=== PATIENT | female | born 1950 | race Caucasian/White ===

== ENCOUNTER 2017-02-06 16:15 | Emergency (ER) | payer OTHER ==
--- NOTE | 2017-02-06 17:01 | DIAGNOSTIC IMAGING REPORT ---
PROCEDURE: XR FOOT 3 VIEWS - RIGHT INDICATION: TRAUMA/INJURY TECHNIQUE: Three views. COMPARISON: None. FINDINGS: Osseous structures and joint spaces are normal. IMPRESSION: 1. Normal right foot.
--- NOTE | 2017-02-06 17:07 | ED NURSING NOTES ---
Clinical Report - Nurses [facility] [address] [place] [address] 02/06/2017 16:16 [id number] Triage time 16:Feb 06 2017. Acuity: LEVEL 4. Chief Complaint: RIGHT LOWER EXTREMITY PAIN and SWELLING. Alert. No acute distress. LAURITA COMA SCORE: Laurita Coma Scale: 15- eyes open spontaneously (4); best verbal response- oriented x 4 (5); best motor response- obeys commands (6). --16:29 Vickie Burrell R.N. 16:25 02/06/17. BP: 156/85. HR: 79. RR: 18. O2 saturation: 100%. Temp: 98.0 F. Pain level now 7/10. --16:29 Vickie Burrell R.N. Weight: 81.6 kg stated. Height/Length: 65 inches Per Patient. BMI: 30. --16:25 Vickie Burrell R.N. Medications None. --16:25 Vickie Burrell R.N. Medication/allergy information source: the patient. --16:29 Vickie Burrell R.N. Allergies Augmentin.(diarrhea) Betadine. (bisters) Daypro.(diarrhea) --16:25 Vickie Burrell R.N. History Arrived by private vehicle. Historian: patient. Accompanied by family. Primary physician ([facility]). ( Right Foot Injury while fixing a table at school, table fell onto the foot.). Injury occurred. This occurred just prior to arrival. Occurred at work. 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 PAST MEDICAL HX: Tetanus status: up-to-date. Has not received seasonal influenza immunization. SOCIAL HX: Never smoker. No alcohol use or drug use. No infectious disease exposure. FALL RISK ASSESSMENT: Fall risk assessment completed. No fall risk identified. NUTRITIONAL RISK ASSESSMENT: The nutritional risk assessment revealed no deficiencies. FUNCTIONAL ASSESSMENT: Functional assessment: no impairments noted. LEARNING NEEDS ASSESSMENT: The learning needs assessment revealed no barriers. SKIN INTEGRITY ASSESSMENT: Skin integrity risk assessment completed. No skin integrity risk identified. --16:29 Vickie Burrell R.N. PROBLEMS: Cystitis. UTI - Urinary Tract Infection. Immunizations. LNMP - Last Normal Menstrual Period. --16:26 Vickie Burrell R.N. ADDITIONAL SURGERIES: Knee Surgery. --16:26 Vickie Burrell R.N. Interventions ID band on patient. To room. --16:29 Vickie Burrell R.N. PHYSICAL ASSESSMENT Ambulatory to room. GENERAL / NEURO / PSYCH: Oriented X 4. Appears in no acute distress. EXTREMITIES: Extremity pulses are within normal limits. Extremities exhibit normal ROM. Neuro-vascular status intact to the extremity. Normal gait. Right foot: tenderness. SKIN: Skin is warm and dry. --17:12 Vickie Burrell R.N. NURSING PROGRESS NOTES Patient ready for evaluation- ED physician and PA notified. --16:29 Vickie Burrell R.N. Cold pack applied (at triage). ( seen and evaluated by the PA.). --17:13 Vickie Burrell R.N. ( discharged by ANTON Ireland). --17:13 Vickie Burrell R.N. DISPOSITION / DISCHARGE Condition at departure: unchanged and stable. No learning barriers present. Discharge instructions provided and reviewed with the patient. Patient verbalized understanding. Written instructions provided in Bahamian. The patient was discharged by the physician professional nursing assistant. She was discharged home and accompanied by family. She left the Emergency Department ambulatory and via private vehicle. Family member driving. FALL RISK ASSESSMENT: Fall risk assessment completed. No fall risk identified. --17:13 Vickie Burrell R.N. Departure time: 17:Feb 06 2017. --17:21 Vickie Burrell R.N. Locked/Released at 02/06/2017 18:13 by Vickie Burrell R.N.
--- NOTE | 2017-02-06 17:07 | ED CLINICAL REPORT ---
Clinical Report - Physicians/Mid Levels [facility] [address] [place] [address] 02/06/2017 16:16 Patient: BARBARA WAYNE Time Seen: 16:43 Feb 06 2017. Arrived- By private vehicle. Historian- patient. HISTORY OF PRESENT ILLNESS Chief Complaint: Injury to the right foot. The injury happened just prior to arrival. Occurred at home. The patient sustained a direct blow. Patient is experiencing mild pain. Patient denies injury to the head or neck. (prior to arrival patient sustained a blow from a table well anxious just prior to arrival. Pain with ambulating. Patient took Motrin prior to arrival. Reports previous injury to the middle toe with a fracture she believes, nonsurgical. Denies any laceration or rash.). REVIEW OF SYSTEMS The patient complains of pain on weight bearing. All systems otherwise negative, except as recorded above. PAST HISTORY Problems: Cystitis. UTI - Urinary Tract Infection. Immunizations. LNMP - Last Normal Menstrual Period. Additional Surgeries: Knee Surgery. Medications: None. Allergies: Augmentin.(diarrhea) Betadine. (bisters) Daypro.(diarrhea). SOCIAL HISTORY Never smoker. No alcohol use or drug use. ADDITIONAL NOTES The nursing notes have been reviewed. PHYSICAL EXAM Vital Signs: 02/06/2017 16:25 BP: 156/85. HR: 79. RR: 18. O2 saturation: 100%. Temp: 98.0 F. Appearance: Alert. No acute distress. Head: Head atraumatic. Neck: Normal inspection. Neck supple. CVS: Normal heart rate and rhythm. Heart sounds normal. Respiratory: No respiratory distress. Breath sounds normal. No decreased air movement or accessory muscle use. Skin: Skin intact. Skin warm. Extremities: Right lateral ankle. Base of the right 5th metatarsal. Right dorsal foot: tenderness, swelling and small ecchymosis. No erythema, laceration, abrasion, foreign body or deformity. Right heel. No tenderness or swelling. No ankle injury. Neuro, Vascular and Tendons: Sensation intact. Motor intact. Neuro: Oriented X 3. LABS, X-RAYS, AND EKG Rt Foot X-ray: (IMPRESSION: 1. Normal right foot. Electronically Final signed by:Dimitry De La Rosa MD 02/06/2017 5:01:58 PM). PROGRESS AND PROCEDURES Course of Care: the patient here there is very stable. No signs of laceration or ecchymosis. Patient with no signs of fracture on x-ray. Able to ambulate. Good distal sensation. No signs of open wound. Stable. 02/06/2017 16:25 BP: 156/85. HR: 79. RR: 18. O2 saturation: 100%. Temp: 98.0 F. Patient is stable. Symptoms better. Patient/family counseled. Disposition: Discharged. CLINICAL IMPRESSION Single contusion to the right foot. INSTRUCTIONS Apply ice. OTC Medications: Motrin IB 200 mg (available over the counter): take 4 orally every 8 hours Follow-up: Follow up with your doctor in four days. (Electronically signed by Phyllis Bonilla P.A.-C 02/06/2017 18:02)
--- NOTE | 2017-02-06 17:07 | ED ORDER SUMMARY ---
..... Patient: BARBARA WAYNE OrderSheet [facility] VisitID: [id number] [address] [place] [address] 66y, F Registration Date/Time: 02/06/2017 ORDER SHEET Weight: 81.6 kg (stated) Allergies: Augmentin, Betadine, Daypro GENERAL ORDERS: Foot 3V Right Urgent (16:34 02/06/2017 Carleen Saldivar) (16:44 [facility]) MEDICATION ORDERS: IV FLUIDS: ORDER SHEET NOTES: [Electronically signed by Phyllis Bonilla P.A.-C (18:01 02/06/2017)] [Electronically signed by Vickie Burrell R.N. (18:13 02/06/2017)] [Electronically locked/signed by Vickie Burrell R.N. (18:13 02/06/2017)]
--- NOTE | 2017-02-06 17:07 | ED CLINICAL REPORT ---
Clinical Report - Physicians/Mid Levels [facility] [address] [place] [address] 02/06/2017 16:16 Patient: BARBARA WAYNE Time Seen: 16:43 Feb 06 2017. Arrived- By private vehicle. Historian- patient. HISTORY OF PRESENT ILLNESS Chief Complaint: Injury to the right foot. The injury happened just prior to arrival. Occurred at home. The patient sustained a direct blow. Patient is experiencing mild pain. Patient denies injury to the head or neck. (prior to arrival patient sustained a blow from a table well anxious just prior to arrival. Pain with ambulating. Patient took Motrin prior to arrival. Reports previous injury to the middle toe with a fracture she believes, nonsurgical. Denies any laceration or rash.). REVIEW OF SYSTEMS The patient complains of pain on weight bearing. All systems otherwise negative, except as recorded above. PAST HISTORY Problems: Cystitis. UTI - Urinary Tract Infection. Immunizations. LNMP - Last Normal Menstrual Period. Additional Surgeries: Knee Surgery. Medications: None. Allergies: Augmentin.(diarrhea) Betadine. (bisters) Daypro.(diarrhea). SOCIAL HISTORY Never smoker. No alcohol use or drug use. ADDITIONAL NOTES The nursing notes have been reviewed. PHYSICAL EXAM Vital Signs: 02/06/2017 16:25 BP: 156/85. HR: 79. RR: 18. O2 saturation: 100%. Temp: 98.0 F. Appearance: Alert. No acute distress. Head: Head atraumatic. Neck: Normal inspection. Neck supple. CVS: Normal heart rate and rhythm. Heart sounds normal. Respiratory: No respiratory distress. Breath sounds normal. No decreased air movement or accessory muscle use. Skin: Skin intact. Skin warm. Extremities: Right lateral ankle. Base of the right 5th metatarsal. Right dorsal foot: tenderness, swelling and small ecchymosis. No erythema, laceration, abrasion, foreign body or deformity. Right heel. No tenderness or swelling. No ankle injury. Neuro, Vascular and Tendons: Sensation intact. Motor intact. Neuro: Oriented X 3. LABS, X-RAYS, AND EKG Rt Foot X-ray: (IMPRESSION: 1. Normal right foot. Electronically Final signed by:Dimitry De La Rosa MD 02/06/2017 5:01:58 PM). PROGRESS AND PROCEDURES Course of Care: the patient here there is very stable. No signs of laceration or ecchymosis. Patient with no signs of fracture on x-ray. Able to ambulate. Good distal sensation. No signs of open wound. Stable. 02/06/2017 16:25 BP: 156/85. HR: 79. RR: 18. O2 saturation: 100%. Temp: 98.0 F. Patient is stable. Symptoms better. Patient/family counseled. Disposition: Discharged. CLINICAL IMPRESSION Single contusion to the right foot. INSTRUCTIONS Apply ice. OTC Medications: Motrin IB 200 mg (available over the counter): take 4 orally every 8 hours Follow-up: Follow up with your doctor in four days. (Electronically signed by Phyllis Bonilla P.A.-C 02/06/2017 18:02)
--- NOTE | 2017-02-06 17:07 | ED ORDER SUMMARY ---
..... Patient: BARBARA WAYNE OrderSheet [facility] VisitID: [id number] [address] [place] [address] 66y, F Registration Date/Time: 02/06/2017 ORDER SHEET Weight: 81.6 kg (stated) Allergies: Augmentin, Betadine, Daypro GENERAL ORDERS: Foot 3V Right Urgent (16:34 02/06/2017 Carleen Saldivar) (16:44 [facility]) MEDICATION ORDERS: IV FLUIDS: ORDER SHEET NOTES: [Electronically signed by Phyllis Bonilla P.A.-C (18:01 02/06/2017)] [Electronically signed by Vickie Burrell R.N. (18:13 02/06/2017)] [Electronically locked/signed by Vickie Burrell R.N. (18:13 02/06/2017)]
--- NOTE | 2017-02-06 17:07 | ED NURSING NOTES ---
Clinical Report - Nurses [facility] [address] [place] [address] 02/06/2017 16:16 [id number] Triage time 16:Feb 06 2017. Acuity: LEVEL 4. Chief Complaint: RIGHT LOWER EXTREMITY PAIN and SWELLING. Alert. No acute distress. LAURITA COMA SCORE: Laurita Coma Scale: 15- eyes open spontaneously (4); best verbal response- oriented x 4 (5); best motor response- obeys commands (6). --16:29 Vickie Burrell R.N. 16:25 02/06/17. BP: 156/85. HR: 79. RR: 18. O2 saturation: 100%. Temp: 98.0 F. Pain level now 7/10. --16:29 Vickie Burrell R.N. Weight: 81.6 kg stated. Height/Length: 65 inches Per Patient. BMI: 30. --16:25 Vickie Burrell R.N. Medications None. --16:25 Vickie Burrell R.N. Medication/allergy information source: the patient. --16:29 Vickie Burrell R.N. Allergies Augmentin.(diarrhea) Betadine. (bisters) Daypro.(diarrhea) --16:25 Vickie Burrell R.N. History Arrived by private vehicle. Historian: patient. Accompanied by family. Primary physician ([facility]). ( Right Foot Injury while fixing a table at school, table fell onto the foot.). Injury occurred. This occurred just prior to arrival. Occurred at work. 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 PAST MEDICAL HX: Tetanus status: up-to-date. Has not received seasonal influenza immunization. SOCIAL HX: Never smoker. No alcohol use or drug use. No infectious disease exposure. FALL RISK ASSESSMENT: Fall risk assessment completed. No fall risk identified. NUTRITIONAL RISK ASSESSMENT: The nutritional risk assessment revealed no deficiencies. FUNCTIONAL ASSESSMENT: Functional assessment: no impairments noted. LEARNING NEEDS ASSESSMENT: The learning needs assessment revealed no barriers. SKIN INTEGRITY ASSESSMENT: Skin integrity risk assessment completed. No skin integrity risk identified. --16:29 Vickie Burrell R.N. PROBLEMS: Cystitis. UTI - Urinary Tract Infection. Immunizations. LNMP - Last Normal Menstrual Period. --16:26 Vickie Burrell R.N. ADDITIONAL SURGERIES: Knee Surgery. --16:26 Vickie Burrell R.N. Interventions ID band on patient. To room. --16:29 Vickie Burrell R.N. PHYSICAL ASSESSMENT Ambulatory to room. GENERAL / NEURO / PSYCH: Oriented X 4. Appears in no acute distress. EXTREMITIES: Extremity pulses are within normal limits. Extremities exhibit normal ROM. Neuro-vascular status intact to the extremity. Normal gait. Right foot: tenderness. SKIN: Skin is warm and dry. --17:12 Vickie Burrell R.N. NURSING PROGRESS NOTES Patient ready for evaluation- ED physician and PA notified. --16:29 Vickie Burrell R.N. Cold pack applied (at triage). ( seen and evaluated by the PA.). --17:13 Vickie Burrell R.N. ( discharged by ANTON Ireland). --17:13 Vickie Burrell R.N. DISPOSITION / DISCHARGE Condition at departure: unchanged and stable. No learning barriers present. Discharge instructions provided and reviewed with the patient. Patient verbalized understanding. Written instructions provided in Guamanian. The patient was discharged by the physician event marketing assistant. She was discharged home and accompanied by family. She left the Emergency Department ambulatory and via private vehicle. Family member driving. FALL RISK ASSESSMENT: Fall risk assessment completed. No fall risk identified. --17:13 Vickie Burrell R.N. Departure time: 17:Feb 06 2017. --17:21 Vickie Burrell R.N. Locked/Released at 02/06/2017 18:13 by Vickie Burrell R.N.
--- NOTE | 2017-02-06 18:13 | ED MED RECONCILIATION SUMMARY ---
Patient: BARBARA WAYNE Medication Reconciliation Report [facility] VisitID: [id number] [address] [place] [address] 66y, F Registration Date/Time: 02/06/2017 Weight: 81.6 kg Height/Length: 65 in. BMI: 30.0 ALLERGIES: Augmentin, Betadine, Daypro The patient's Home Medications are listed below: NONE. The source(s) of the original Home Medication information: patient The following Medications were given to the patient in the Emergency Department: None. The following Medications were prescribed to the patient: Motrin IB 200 mg (available over the counter): take 4 orally every 8 hours -- Phyllis Bonilla P.AElijahC
--- NOTE | 2017-02-06 18:13 | ED DISCHARGE INSTRUCTIONS ---
Patient: BARBARA WAYNE General Instructions [facility] VisitID: [id number] [place] [address] 66y, F Registration Date/Time: 02/06/2017 Single contusion to the right foot. INSTRUCTIONS Apply ice. OTC Medications: Motrin IB 200 mg (available over the counter): take 4 orally every 8 hours Follow-up: Follow up with your doctor in four days. ADDITIONAL INFORMATION Contusion: Foot You have a CONTUSION of your foot. This causes local pain, swelling and sometimes bruising. There are no broken bones. This injury may take from a few days to a few weeks to heal. Home Care: 1) Keep your LEG elevated to reduce pain and swelling. This is very important during the first 48 hours. If walking causes pain, stay off the injured leg until you can walk without pain. 2) If CRUTCHES have been advised, do not bear full weight on the injured leg until you can do so without pain. You may return to sports when you are able to hop and run on the injured leg without pain. 3) Make an ice pack (ice cubes in a plastic bag, wrapped in a towel) and apply for 20 minutes every 1-2 hours the first day. Continue this 3-4 times a day until the swelling goes down. 4) You may use acetaminophen (Tylenol) or ibuprofen (Motrin, Advil) to control pain, unless another pain medicine was prescribed. [ NOTE : If you have chronic liver or kidney disease or ever had a stomach ulcer or GI bleeding, talk with your doctor before using these medicines.] Follow Up with your doctor or this facility if you are not starting to improve within the next THREE days. [NOTE: If X-rays were taken, they will be reviewed by a radiologist. You will be notified of any new findings that may affect your care.] Get Prompt Medical Attention if any of the following occur: -- Pain or swelling increases -- Toes become cold, blue, numb or tingly -- Redness, warmth or drainage from the skin Ibuprofen Oral tablet What is this medicine? IBUPROFEN (eye BYOO proe fen) is a non-steroidal anti-inflammatory drug (NSAID). It is used for dental pain, fever, headaches or migraines, osteoarthritis, rheumatoid arthritis, or painful monthly periods. It can also relieve minor aches and pains caused by a cold, flu, or sore throat. How should I use this medicine? Take this medicine by mouth with a glass of water. Follow the directions on the prescription label. Take this medicine with food if your stomach gets upset. Try to not lie down for at least 10 minutes after you take the medicine. Take your medicine at regular intervals. Do not take your medicine more often than directed. A special MedGuide will be given to you by the pharmacist with each prescription and refill. Be sure to read this information carefully each time. Talk to your crew mess attendant regarding the use of this medicine in children. Special care may be needed. What side effects may I notice from receiving this medicine? Side effects that you should report to your doctor or health rn urgent care as soon as possible: allergic reactions like skin rash, itching or hives, swelling of the face, lips, or tongue black or bloody stools, blood in the urine or in vomit breathing problems changes in vision chest pain general ill feeling or flu-like symptoms nausea or vomiting redness, blistering, peeling or loosening of the skin, including inside the mouth slurred speech or weakness on one side of the body stomach pain unexplained weight gain or swelling unusually weak or tired yellowing of eyes or skin Side effects that usually do not require medical attention (report to your doctor or health rn urgent care if they continue or are bothersome): constipation or diarrhea dizziness gas or heartburn stomach upset What may interact with this medicine? Do not take this medicine with any of the following medications: cidofovir ketorolac methotrexate pemetrexed This medicine may also interact with the following medications: alcohol aspirin diuretics lithium other drugs for inflammation like prednisone warfarin What if I miss a dose? If you miss a dose, take it as soon as you can. If it is almost time for your next dose, take only that dose. Do not take double or extra doses. Where should I keep my medicine? Keep out of the reach of children. Store at room temperature between 15 and 30 degrees C (59 and 86 degrees F). Keep container tightly closed. Throw away any unused medicine after the expiration date. What should I tell my health care provider before I take this medicine? They need to know if you have any of these conditions: asthma cigarette smoker drink more than 3 alcohol containing drinks a day heart disease or circulation problems such as heart failure or leg edema (fluid retention) high blood pressure kidney disease liver disease stomach bleeding or ulcers an unusual or allergic reaction to ibuprofen, aspirin, other NSAIDS, other medicines, foods, dyes, or preservatives or trying to get breast-feeding What should I watch for while using this medicine? Tell your doctor or healthcare professional if your symptoms do not start to get better or if they get worse. This medicine does not prevent heart attack or stroke. In fact, this medicine may increase the chance of a heart attack or stroke. The chance may increase with longer use of this medicine and in people who have heart disease. If you take aspirin to prevent heart attack or stroke, talk with your doctor or health rn urgent care. Do not take other medicines that contain aspirin, ibuprofen, or naproxen with this medicine. Side effects such as stomach upset, nausea, or ulcers may be more likely to occur. Many medicines available without a prescription should not be taken with this medicine. This medicine can cause ulcers and bleeding in the stomach and intestines at any time during treatment. Ulcers and bleeding can happen without warning symptoms and can cause . To reduce your risk, do not smoke cigarettes or drink alcohol while you are taking this medicine. You may get drowsy or dizzy. Do not drive, use machinery, or do anything that needs mental alertness until you know how this medicine affects you. Do not stand or sit up quickly, especially if you are an older patient. This reduces the risk of dizzy or fainting spells. This medicine can cause you to bleed more easily. Try to avoid damage to your teeth and gums when you brush or floss your teeth. You have been given the following additional information: Contusion, Foot Ibuprofen Oral tablet (Electronically signed by Phyllis Bonilla P.A.-C 02/06/2017 18:02)
--- NOTE | 2017-02-06 18:13 | ED MAR SUMMARY ---
..... Medication Administration Record [facility] [address], [place] [id number] Patient: BARBARA WAYNE Visit ID: [id number] 66y, F Weight: 81.6 kg Height/Length: 65 in BMI: 30 ALLERGIES: Augmentin, Betadine, Daypro
--- NOTE | 2017-02-06 18:13 | ED DISCHARGE INSTRUCTIONS ---
Patient: BARBARA WAYNE General Instructions [facility] VisitID: [id number] [place] [address] 66y, F Registration Date/Time: 02/06/2017 Single contusion to the right foot. INSTRUCTIONS Apply ice. OTC Medications: Motrin IB 200 mg (available over the counter): take 4 orally every 8 hours Follow-up: Follow up with your doctor in four days. ADDITIONAL INFORMATION Contusion: Foot You have a CONTUSION of your foot. This causes local pain, swelling and sometimes bruising. There are no broken bones. This injury may take from a few days to a few weeks to heal. Home Care: 1) Keep your LEG elevated to reduce pain and swelling. This is very important during the first 48 hours. If walking causes pain, stay off the injured leg until you can walk without pain. 2) If CRUTCHES have been advised, do not bear full weight on the injured leg until you can do so without pain. You may return to sports when you are able to hop and run on the injured leg without pain. 3) Make an ice pack (ice cubes in a plastic bag, wrapped in a towel) and apply for 20 minutes every 1-2 hours the first day. Continue this 3-4 times a day until the swelling goes down. 4) You may use acetaminophen (Tylenol) or ibuprofen (Motrin, Advil) to control pain, unless another pain medicine was prescribed. [ NOTE : If you have chronic liver or kidney disease or ever had a stomach ulcer or GI bleeding, talk with your doctor before using these medicines.] Follow Up with your doctor or this facility if you are not starting to improve within the next THREE days. [NOTE: If X-rays were taken, they will be reviewed by a radiologist. You will be notified of any new findings that may affect your care.] Get Prompt Medical Attention if any of the following occur: -- Pain or swelling increases -- Toes become cold, blue, numb or tingly -- Redness, warmth or drainage from the skin Ibuprofen Oral tablet What is this medicine? IBUPROFEN (eye BYOO proe fen) is a non-steroidal anti-inflammatory drug (NSAID). It is used for dental pain, fever, headaches or migraines, osteoarthritis, rheumatoid arthritis, or painful monthly periods. It can also relieve minor aches and pains caused by a cold, flu, or sore throat. How should I use this medicine? Take this medicine by mouth with a glass of water. Follow the directions on the prescription label. Take this medicine with food if your stomach gets upset. Try to not lie down for at least 10 minutes after you take the medicine. Take your medicine at regular intervals. Do not take your medicine more often than directed. A special MedGuide will be given to you by the pharmacist with each prescription and refill. Be sure to read this information carefully each time. Talk to your e commerce strategist regarding the use of this medicine in children. Special care may be needed. What side effects may I notice from receiving this medicine? Side effects that you should report to your doctor or health nursing care partner as soon as possible: allergic reactions like skin rash, itching or hives, swelling of the face, lips, or tongue black or bloody stools, blood in the urine or in vomit breathing problems changes in vision chest pain general ill feeling or flu-like symptoms nausea or vomiting redness, blistering, peeling or loosening of the skin, including inside the mouth slurred speech or weakness on one side of the body stomach pain unexplained weight gain or swelling unusually weak or tired yellowing of eyes or skin Side effects that usually do not require medical attention (report to your doctor or health nursing care partner if they continue or are bothersome): constipation or diarrhea dizziness gas or heartburn stomach upset What may interact with this medicine? Do not take this medicine with any of the following medications: cidofovir ketorolac methotrexate pemetrexed This medicine may also interact with the following medications: alcohol aspirin diuretics lithium other drugs for inflammation like prednisone warfarin What if I miss a dose? If you miss a dose, take it as soon as you can. If it is almost time for your next dose, take only that dose. Do not take double or extra doses. Where should I keep my medicine? Keep out of the reach of children. Store at room temperature between 15 and 30 degrees C (59 and 86 degrees F). Keep container tightly closed. Throw away any unused medicine after the expiration date. What should I tell my health care provider before I take this medicine? They need to know if you have any of these conditions: asthma cigarette smoker drink more than 3 alcohol containing drinks a day heart disease or circulation problems such as heart failure or leg edema (fluid retention) high blood pressure kidney disease liver disease stomach bleeding or ulcers an unusual or allergic reaction to ibuprofen, aspirin, other NSAIDS, other medicines, foods, dyes, or preservatives or trying to get breast-feeding What should I watch for while using this medicine? Tell your doctor or healthcare professional if your symptoms do not start to get better or if they get worse. This medicine does not prevent heart attack or stroke. In fact, this medicine may increase the chance of a heart attack or stroke. The chance may increase with longer use of this medicine and in people who have heart disease. If you take aspirin to prevent heart attack or stroke, talk with your doctor or health nursing care partner. Do not take other medicines that contain aspirin, ibuprofen, or naproxen with this medicine. Side effects such as stomach upset, nausea, or ulcers may be more likely to occur. Many medicines available without a prescription should not be taken with this medicine. This medicine can cause ulcers and bleeding in the stomach and intestines at any time during treatment. Ulcers and bleeding can happen without warning symptoms and can cause . To reduce your risk, do not smoke cigarettes or drink alcohol while you are taking this medicine. You may get drowsy or dizzy. Do not drive, use machinery, or do anything that needs mental alertness until you know how this medicine affects you. Do not stand or sit up quickly, especially if you are an older patient. This reduces the risk of dizzy or fainting spells. This medicine can cause you to bleed more easily. Try to avoid damage to your teeth and gums when you brush or floss your teeth. You have been given the following additional information: Contusion, Foot Ibuprofen Oral tablet (Electronically signed by Phyllis Bonilla P.A.-C 02/06/2017 18:02)
--- NOTE | 2017-02-06 18:13 | ED MAR SUMMARY ---
..... Medication Administration Record [facility] [address] [place], [place] [id number] Patient: BARBARA WAYNE Visit ID: [id number] 66y, F Weight: 81.6 kg Height/Length: 65 in BMI: 30 ALLERGIES: Augmentin, Betadine, Daypro
--- NOTE | 2017-02-06 18:13 | ED MED RECONCILIATION SUMMARY ---
Patient: BARBARA WAYNE Medication Reconciliation Report [facility] VisitID: [id number] [address] [place] [address] 66y, F Registration Date/Time: 02/06/2017 Weight: 81.6 kg Height/Length: 65 in. BMI: 30.0 ALLERGIES: Augmentin, Betadine, Daypro The patient's Home Medications are listed below: NONE. The source(s) of the original Home Medication information: patient The following Medications were given to the patient in the Emergency Department: None. The following Medications were prescribed to the patient: Motrin IB 200 mg (available over the counter): take 4 orally every 8 hours -- Phyllis Bonilla P.AElijahC
== END 2017-02-06 17:15 | disposition home or self-care (01) ==
LOC: ED SRH 16:15
DX: S90.31XA Contusion of right foot, initial encounter (principal); W22.03XA Walked into furniture, initial encounter; X58.XXXA Exposure to other specified factors, initial encounter; Y92.019 Unspecified place in single-family (private) house as the place of occurrence of the external cause; Y99.9 Unspecified external cause status; Z88.1 Allergy status to other antibiotic agents; Z88.3 Allergy status to other anti-infective agents; Z88.6 Allergy status to analgesic agent